=== PATIENT | female | born 1955 | race Caucasian/White ===

== ENCOUNTER 2024-01-27 15:54 | Outpatient (CLI) | payer MEDICARE, SELFPAY ==
[2024-01-27 16:15] LABS: Basophils % 0.4 % (0.1-2.0); Eosinophils # 0.2 K/mm3 (0.0-0.4); Eosinophils % 1.8 % (0.1-12.0); Hematocrit 35.8 % (37.0-47.0); Hemoglobin 11.4 g/dL (12.2-16.2); Lymphocytes # 2.6 K/mm3 (0.7-4.5); Lymphocytes % 29.4 % (10-50); Mean Corpuscular HGB Conc 31.8 g/dL (31.8-35.4); Mean Corpuscular Hemoglobin 30.1 pg (27.0-31.2); Mean Corpuscular Volume 94.6 fl (81-99); Mean Platelet Volume 11.6 fl (7.4-10.4); Monocytes # 0.4 K/mm3 (0.1-1.0); Monocytes % 4.6 % (1.7-9.3); Neutrophils # 5.6 K/mm3 (1.8-7.8); Neutrophils % 63.8 % (37.0-80.0); Platelet Count 189 K/mm3 (142-424); Red Blood Count 3.78 M/mm3 (4.20-5.40); Red Cell Distribution Width 14.2 % (11.5-17.5); White Blood Count 8.7 K/mm3 (4.8-10.8)
[2024-01-27 16:54] LABS: Albumin Level 4.2 g/dl (3.5-5.0); Chloride 108 mmol/L (98-107); Potassium 4.3 mmoL/L (3.5-5.1); Sodium 139 mmol/L (136-145)
[2024-01-27 16:56] LABS: Blood Urea Nitrogen 16 mg/dl (7-17); Estimated Glomerular Filt Rate 71 ml/min (>60); GFR (African American) 86 ML/MIN (>60)
[2024-01-27 16:57] LABS: Alanine Aminotransferase 41 U/L (12-78); Alkaline Phosphatase 94 U/L (38-126); Anion Gap 10.3 mEq/L (5-15); Aspartate Amino Transferase 39 U/L (14-36); Bilirubin,Direct 0.1 mg/dl (0.0-0.4); Bilirubin,Indirect 0.5 mg/dL (0.0-0.9); Bilirubin,Total 0.6 mg/dl (0.2-1.3); Bilirubin,Unconjugated 0.5 mg/dL (0.0-1.1); Carbon Dioxide 25 mmol/L (22.0-30.0); Cholesterol 87 mg/dl (140-200); Glucose 85 mg/dl (74-100); Magnesium 1.4 mg/dl (1.6-2.3); Total Protein,Serum 6.9 g/dl (6.3-8.2); Triglycerides 228 mg/dl (30-150); VLDL Cholesterol 46 mg/dL (0-40)
[2024-01-27 16:58] LABS: Chol/HDL Ratio 2.4 (1-3.5); HDL Cholesterol 36 mg/dl (40-60)
[2024-01-27 17:19] LABS: Direct LDL Cholesterol < 30.00 mg/dL (100-129)
[2024-01-27 17:28] LABS: Thyroid Stimulating Hormone 0.74 uIU/mL (0.465-4.68)
[2024-01-27 17:35] LABS: Free T4 (Free Thyroxine) 0.71 ng/dl (0.78-2.19)
[2024-01-27 17:36] LABS: Hemoglobin A1C 5.8 % (4.0-6.0)
== END 2024-01-27 23:59 | disposition home or self-care (01) ==
LOC: LAB 16:00
PROVIDERS: PCP Nurse Practitioner; Visit Provider Internal Medicine
DX: R94.31 Abnormal electrocardiogram [ECG] [EKG] (principal); E78.5 Hyperlipidemia, unspecified; I10 Essential (primary) hypertension; I25.10 Atherosclerotic heart disease of native coronary artery without angina pectoris; Z95.5 Presence of coronary angioplasty implant and graft; Z95.1 Presence of aortocoronary bypass graft; Z95.0 Presence of cardiac pacemaker; E11.9 Type 2 diabetes mellitus without complications
CPT/HCPCS: 80048; 80061; 80076; 83036; 83735; 84439; 84443; 85025

== ENCOUNTER 2024-02-06 09:18 | Outpatient (CLI) | payer MEDICARE, SELFPAY ==
--- NOTE | 2024-02-06 09:21 | CA_ITS ---
APPROVED REPORT EXAM: Comprehensive 2D, Doppler, and color-flow Echocardiogram Manager Cancer: Allison Alves RT(R) Ht: 5 ft 2 in Wt: 168lbs BSA: 1.78 BP: 134/59 mmHg Indications: ex smoker, SOB, syncope, HTN, hyperlipidemia, abn EKG, PPM 2D Dimensions LVEF (Lindquist's) 48.70 % F: 54 - 74 LV Volume 91.30 mL F: 46 - 106 LV Volume Index 51.3 mL/m2 F: 29 - 61 LA Volume 34.90 mL LA Volume Index 19.61 mL/m2 (M/F) 16-34 EF AP4 50.10 % EF AP2 47.3 % EF BP 48.7 % GL Strain -15.8 % M-Mode Dimensions RVDd 2.10 cm (0.9-2.6) LA Diam 3.48 cm (1.9-4.0) LVDd 5.55 cm (3.5-5.7) LVDs 4.09 cm (3.5-5.7) IVSd 0.64 cm (0.6-1.1) PWd 0.82 cm (0.6-1.1) EF (Teich) 51.00% FS 26.30% EDV (Teich) 150.50 mL ESV (Teich) 73.80 mL LV Diastology E Decel Time 213 (160-240 msec) E/A Ratio 0.9 Mitral Valve MV E Max Vinod. 90.0 (40-130 cm/s) MV A Velocity 104.0 (40-130 cm/s) E/A Ratio 0.87 MV PHT 62.0 ms Left Ventricle The left ventricle is normal size. The left ventricular systolic function is normal. The left ventricular ejection fraction is within the normal range. There is increased LV wall thickness. There is normal LV segmental wall motion. Transmitral Doppler flow pattern suggests impaired LV relaxation. LVEF is 55%. Right Ventricle The right ventricle is normal size. The right ventricular systolic function is normal. A device lead is present in the right ventricle. Atria Left atrium is mildly dilated. The right atrium is mildly dilated. There is no evidence of interatrial shunt. Aortic Valve The aortic valve is mildly thickened. There is no aortic valvular stenosis. Trace aortic regurgitation. Mitral Valve The mitral valve leaflets are mildly thickened. No evidence of mitral valve stenosis. Mild mitral regurgitation. Tricuspid Valve The tricuspid valve leaflets are thin and pliable. Trace tricuspid regurgitation. There is insufficient TR jet to estimate RVSP. Pulmonic Valve The pulmonary valve is normal in structure. Trace pulmonic regurgitation. Great Vessels The aortic root is normal in size. The ascending aorta is not well-visualized. IVC is normal in size and collapses >50% with inspiration. Pericardium There is no pericardial effusion. Other Information Study Quality: Fair Conclusion Normal biventricular systolic function. Mild biatrial dilation. Mild MR. Electronically signed by : Jessika Shin MD 02/09/2024 20:33:55
== END 2024-02-06 23:59 | disposition home or self-care (01) ==
LOC: RT 09:19
PROVIDERS: PCP Nurse Practitioner; Visit Provider Internal Medicine
DX: R94.31 Abnormal electrocardiogram [ECG] [EKG] (principal); I10 Essential (primary) hypertension; I25.10 Atherosclerotic heart disease of native coronary artery without angina pectoris; R06.00 Dyspnea, unspecified; Z95.1 Presence of aortocoronary bypass graft; Z95.0 Presence of cardiac pacemaker; Z95.5 Presence of coronary angioplasty implant and graft
CPT/HCPCS: 93306

== ENCOUNTER 2024-03-04 06:19 | Outpatient (CLI) | payer MEDICARE, SELFPAY ==
--- NOTE | 2024-03-04 | CA_ITS ---
APPROVED REPORT Exam: Pharmacologic Technologist: Angie Shields Ht: 5 ft 2 in Wt: 172 lbs BSA: 1.79 m2 HR: 70 bpm BP: 163/47 mmHg Rhythm: NSR Indications: Dyspnea Medical History Medications: Aspirin,,,,, Lispro,,,,, Metformin,,,,, Gabapentin,,,,, Vitamin D3,,,,, Pantoprazole,,,,, Atorvastatin,,,,, SyMBICORT,,,,, Nitroglycerin,,,,, LanTUS Solostar,,,,, Tradjenta,,,,, MuCINEX,,,,, Stress Test Details Test: LEXISCAN HR Resting HR: 89 bpm Max Heart Rate (APMHR): 150 bpm Max HR Achieved: 109 bpm Target HR (85% APMHR): 128 bpm % of APMHR: 73 Recovery HR: 70 bpm BP Resting BP: 163.0/47.0 mmHg Max BP: 163.0/47.0 mmHg Recovery BP: 145.0/61.0 mmHg ECG Resting ECG: Normal sinus rhythm, short runs of SVT(4-5 beats), rightward axis, cannot rule out old septal KS, ST abnormalities inferiorly and laterally. Stress ECG: No significant ST changes Arrhythmia: Runs of SVT (5-6 seconds) Clinical Exercise duration: 04:11 min Highest Stage Achieved: Exercise capacity: 1.0 METs Stress ECG Conclusion Symptoms: Shortness of air, mild head and stomach discomfort. No chest pain. Arrhythmias/Ectopy: Frequent short runs of SVT lasting up to [address]-T Changes: No significant ST changes Conclusion: Atrial arrhythmia as noted above, otherwise unremarkable ECG portion of Lexiscan stress. Myoview images reported separately. Test Summary REST . . . . . . . Resting REST 04:10 . . 89 . 163/ 47 . . Stage 1 . . . . . . . Myoview Injected Stage 1 01:00 . . 84 . . . . Stage 2 01:00 . . 92 . . . . Stage 3 01:00 . . 73 . 133/ 55 . . Stage 4 01:00 . . 70 . 129/ 50 . . Stage 4 01:11 . . 75 . 117/ 57 . Stop exercise at 04:11 RECOVERY 01:00 . . 91 . . . . RECOVERY 02:00 . . 70 . 137/ 55 . . RECOVERY 03:00 . . 70 . 137/ 55 . . RECOVERY 03:34 . . 89 . 145/ 61 . . Electronically signed by : Jessika Shin MD 03/05/2024 12:30:27
--- NOTE | 2024-03-04 06:31 | NM_ITS ---
APPROVED REPORT Exam: Nuclear Stress Test Indication: cad, diabetes, hyperlipidemia, fm hx, sob Patient Location: Outpatient Stress Tech: Angie Shields MS Tech:Nalini MoADA RT (R)(N)(M) Ht: 5 ft 2 in Wt: 168 lbs Bra Size: 38b HR: 70 bpm BP: 163/47 mmHg BSA: 1.78 m2 Rhythm: NSR TID: 1.48 BMI: 30.7 History: CAD, diabetes, hyperlipidemia, fm hx, SOB Procedure: Patient received 0.4 mg of intravenous Lexiscan, resting heart rate 70 bpm, resting blood pressure 163/47 mmHg, with Lexiscan maximum heart rate achieved was 84 bpm which is % of the maximum predicted heart rate and blood pressure was 133/55 mmHg. With Lexiscan, patient denied any complaint of chest pain. Cardiac Stress and Resting SPECT Images: Cardiac Stress and Resting SPECT images were obtained using technetium 99m Myoview 27.3 mCi stress and 8.16 mCi at rest. Resting and stress imaging in supine and prone imaging demonstrates a large sized, severe, fixed perfusion defect in the anterior LV wall. There is increase in transient ischemic dilatation (TID 1.48), which may be suggestive of multivessel disease or balanced ischemia. Gated imaging demonstrates mild reduction in global LV systolic function. There is moderate hypokinesis of the anterior LV wall. LVEF is calculated at 45%. Conclusion: Large sized, severe, fixed perfusion defect in the anterior LV wall. There is increase in transient ischemic dilatation (TID 1.48), which may be suggestive of multivessel disease or balanced ischemia. Gated imaging demonstrates mild reduction in global LV systolic function. There is moderate hypokinesis of the anterior LV wall. LVEF is calculated at 45%. Electronically signed by : Jessika Shin MD 03/10/2024 12:02:36
[2024-03-04] MEDS: SODIUM CHLORIDE 0.9% 10ML SYR (RAD ONLY) 10 ML IV ×2 (07:05→08:15)
[2024-03-04] MEDS: REGADENOSON 0.4MG/5ML SYRINGE 0.4 MG IV (08:15)
[2024-03-04] MEDS: ISOTOPE MYOVIEW (PER STUDY) 1 DOSE IV (10:32)
== END 2024-03-04 23:59 | disposition home or self-care (01) ==
LOC: RAD 06:21
PROVIDERS: PCP Nurse Practitioner; Visit Provider Internal Medicine
DX: I25.10 Atherosclerotic heart disease of native coronary artery without angina pectoris (principal); R06.00 Dyspnea, unspecified; E11.9 Type 2 diabetes mellitus without complications; Z79.4 Long term (current) use of insulin; Z95.1 Presence of aortocoronary bypass graft
CPT/HCPCS: 78452; 93017; 93018; A9502; J2785

== ENCOUNTER 2024-09-25 07:43 | Outpatient (CLI) | payer MEDICARE, SELFPAY ==
[2024-09-25] MEDS: ALBUTEROL 0.083% 2.5 MG/3 ML NEB IH (08:43)
--- NOTE | 2024-09-25 08:44 | PC.NURSE ---
PFT and 6 Minute Walk Test completed without incident. Albuterol 0.083% given via HHN, per written protocol, Pt tolerated tx well.
== END 2024-09-25 23:59 | disposition home or self-care (01) ==
PROVIDERS: PCP Nurse Practitioner; Visit Provider Internal Medicine Pulmonary Disease
DX: J44.9 Chronic obstructive pulmonary disease, unspecified (principal)
CPT/HCPCS: 94060; 94618; 94726; 94729

== ENCOUNTER 2024-09-28 09:08 | Outpatient (CLI) | payer MEDICARE, SELFPAY ==
--- NOTE | 2024-09-28 09:11 | XR_ITS ---
FINAL REPORT TECHNIQUE: Bone densitometry calculations of the lumbar spine and left hip were obtained. CLINICAL HISTORY: SCREENING COMPARISON: None FINDINGS: Using L1-4, the bone mineral density of the spine is 1.217 g/cm2, corresponding to T-score of 1.5. Using the left hip, the bone mineral density of the femoral neck is 0.697 g/cm2, corresponding to a T-score of -1.4. Using the right hip, the bone mineral density of the femoral neck is 0.635 g/cm?, corresponding to a T-score of -1.9. NOTE: T-score: Standard deviation compared with peak bone mass of young adult mean. *Following the recommendations of the International Society of Bone densitometry, classification of hip BMD is based on the lower of two T-scores; total hip or femoral neck. IMPRESSION: Diminished bone mineral density of the bilateral hips consistent with osteopenia. Normal bone mineral density of the lumbar spine. Reviewed, Interpreted and Dictated by Brayan Dolan MD Transcribed by Lizeth Bryan Authenticated and [facility]
== END 2024-09-28 23:59 | disposition home or self-care (01) ==
LOC: RAD 09:08
PROVIDERS: PCP Nurse Practitioner; Visit Provider Nurse Practitioner
DX: M85.852 Other specified disorders of bone density and structure, left thigh (principal); M85.851 Other specified disorders of bone density and structure, right thigh; S22.000A Wedge compression fracture of unspecified thoracic vertebra, initial encounter for closed fracture; Z13.9 Encounter for screening, unspecified
CPT/HCPCS: 77080

== ENCOUNTER 2025-01-04 16:00 | Outpatient (RCR) | payer MEDICARE, SELFPAY | END 2025-01-04 23:59 | disposition home or self-care (01) | LOC: PT.CARL 16:00 | PROVIDERS: PCP Nurse Practitioner; Visit Provider Nurse Practitioner | DX: M48.00 Spinal stenosis, site unspecified (principal) | CPT/HCPCS: 97110; 97140; 97162 ==

== ENCOUNTER 2025-01-19 15:19 | Outpatient (RCR) | payer MEDICARE, SELFPAY | END 2025-01-19 23:59 | disposition home or self-care (01) | LOC: PT.CARL 15:19 | PROVIDERS: PCP Nurse Practitioner; Visit Provider Nurse Practitioner | DX: M48.00 Spinal stenosis, site unspecified (principal) | CPT/HCPCS: 97110; 97140 ==